=== PATIENT | female | born 1960 | race Caucasian/White ===

== ENCOUNTER 2017-11-25 16:43 | Emergency (ER) | payer OTHER ==
[~2017-11-25] VITALS: Ht 170.2 cm; Wt 80.0 kg
[~2017-11-25 16:43] MED LIST: AMLO10TA PO; LOSA100T28 PO
[2017-11-25 16:48] VITALS: BP 146/83
== END 2017-11-25 17:44 | disposition home or self-care (01) ==
LOC: ER 16:44
DX: S90.122A Contusion of left lesser toe(s) without damage to nail, initial encounter (principal); I10 Essential (primary) hypertension; F17.200 Nicotine dependence, unspecified, uncomplicated; Z88.0 Allergy status to penicillin; Z88.8 Allergy status to other drugs, medicaments and biological substances; Z79.899 Other long term (current) drug therapy; X58.XXXA Exposure to other specified factors, initial encounter; Y93.89 Activity, other specified; Y92.89 Other specified places as the place of occurrence of the external cause; Y99.8 Other external cause status
CPT/HCPCS: 73660; 99284; L3260

== ENCOUNTER 2017-12-11 10:41 | Emergency (ER) | payer OTHER ==
[~2017-12-11] VITALS: Ht 170.2 cm; Wt 71.0 kg
[2017-12-11] MEDS ORDERED: orphenadrine citrate 60mg/2ml inj. IM ONE (11:05)
[2017-12-11] MEDS ORDERED: ketorolac trometh inj. 60 MG/2 ML VIAL IM ONE (11:05)
[2017-12-11] MEDS ORDERED: CYCL-1 PO (11:12)
[2017-12-11 11:28] VITALS: BP 134/65
== END 2017-12-11 11:29 | disposition home or self-care (01) ==
LOC: ER 10:42
DX: S39.012A Strain of muscle, fascia and tendon of lower back, initial encounter (principal); M62.830 Muscle spasm of back; I10 Essential (primary) hypertension; Z88.0 Allergy status to penicillin; Z88.8 Allergy status to other drugs, medicaments and biological substances; Z79.899 Other long term (current) drug therapy; W22.8XXA Striking against or struck by other objects, initial encounter; Y93.89 Activity, other specified; Y92.89 Other specified places as the place of occurrence of the external cause; Y99.8 Other external cause status
CPT/HCPCS: 96372; 99284; J1885; J2360

== ENCOUNTER 2018-04-19 08:35 | Inpatient (IN) | payer OTHER ==
[~2018-04-19] VITALS: Ht 170.2 cm; Wt 71.7 kg
[~2018-04-19 08:35] MED LIST changes: +CYCL-1 PO
[2018-04-19] MEDS ORDERED: aspirin 81mg tab.chew PO ONE ×2 (08:55→09:30)
[2018-04-19 09:16] LABS: BASOPHILS % (AUTO) 0.3 % (0-1); EOSINOPHILS # (AUTO) 0.1 X10'3 (0-0.9); EOSINOPHILS % (AUTO) 1.3 % (0-6); HEMATOCRIT 42.5 % (35.0-45.0); HEMOGLOBIN 14.7 g/dl (12.0-16.0); LYMPHOCYTES # (AUTO) 1.8 X10'3 (1.1-4.8); LYMPHOCYTES % (AUTO) 16.5 % (21-51); MEAN CORPUSCULAR HEMOGLOBIN 31.4 PG (27.0-31.0); MEAN CORPUSCULAR HGB CONC 34.7 % (33.0-36.5); MEAN CORPUSCULAR VOLUME 90.7 FL (78-98); MEAN PLATELET VOLUME 9.9 FL (7.4-10.4); MONOCYTES # (AUTO) 0.3 X10'3 (0-0.9); MONOCYTES % (AUTO) 2.7 % (2-12); NEUTROPHILS # (AUTO) 8.7 X10'3 (1.8-7.7); NEUTROPHILS % (AUTO) 79.2 % (42-75); PLATELET COUNT 251 X10'3 (140-440); RED BLOOD COUNT 4.69 X10'6 (4.20-5.60); RED CELL DISTRIBUTION WIDTH 13.4 % (11.5-14.5); WHITE BLOOD COUNT 10.9 X10'3 (4.5-11.0)
[2018-04-19 09:33] LABS: INR 0.9 INR; PARTIAL THROMBOPLASTIN TIME 26 SECONDS (22-32); PROTHROMBIN TIME 9.8 SECONDS (9.0-12.0)
[2018-04-19 09:38] LABS: ALANINE AMINOTRANSFERASE 33 U/L (12-78); ALBUMIN 3.7 G/DL (3.4-5.0); ALKALINE PHOSPHATASE 146 IU/L (46-116); ANION GAP 9 (8-16); ASPARTATE AMINO TRANSFERASE 16 U/L (10-37); BILIRUBIN,TOTAL 0.3 MG/DL (0.1-1.0); BLOOD UREA NITROGEN 7 MG/DL (7-18); BUN/CREATININE RATIO 8.2 (6.6-38.0); CALCIUM 9.2 MG/DL (8.5-10.1); CHLORIDE 103 MMOL/L (99-107); CREATININE 0.85 MG/DL (0.40-0.90); GLUCOSE 109 MG/DL (70-104); POTASSIUM 3.7 MMOL/L (3.5-5.1); SODIUM 139 MMOL/L (135-145); TOTAL CARBON DIOXIDE 26.9 MMOL/L (24-32); TOTAL PROTEIN 7.4 G/DL (6.4-8.2); eGFR 69 ML/MIN
[2018-04-19] MEDS: nitroGLYCERIN 0.4mg SUBLingual tab SL PRN ×2 (09:42→09:52)
[2018-04-19] MEDS ORDERED: nitroGLYCERIN 0.4mg SUBLingual tab SL PRN (11:35)
[2018-04-19] MEDS: K and/or MAG REPLACEMENT MC SCH (11:35)
[2018-04-19] MEDS ORDERED: potassium Cl 40MEQ/NS 500ml 500 ML IV PRN ×2 (11:35)
[2018-04-19] MEDS ORDERED: regadenoson 0.4mg/5ml syringe IV PRN (11:35)
[2018-04-19] MEDS ORDERED: potassium Cl 20 mEq SR tablet PO PRN ×2 (11:35)
[2018-04-19] MEDS ORDERED: morphine 4 MG/ML inj SYRINge IV PRN ×2 (11:35)
[2018-04-19] MEDS ORDERED: magnesium 1gm/100ml D5W IVPB 50 ML IV PRN (11:35)
[2018-04-19] MEDS ORDERED: magnesium Cl slow-release 64mg tablet PO PRN (11:35)
[2018-04-19] MEDS ORDERED: CAFFEINE CITRATE 60 MG/3 ML injection vial IV PRN (11:35)
[2018-04-19] MEDS ORDERED: acetaminophen 325mg tablet PO PRN ×2 (11:35)
[2018-04-19] MEDS ORDERED: magnesium 4gm in 100ml NS 100 ML IV PRN (11:35)
[2018-04-19] MEDS ORDERED: metoprolol tartrate 1mg/ml inj IV PRN (11:35)
[2018-04-19] MEDS ORDERED: mag hydrox/Alum hydrox/simeth 30ml oral suspension PO PRN (11:35)
[2018-04-19] MEDS ORDERED: HYDROcodone/acetaminophen 5mg/325mg tablet PO PRN (11:35)
[2018-04-19] MEDS ORDERED: magnesium hydroxide 30ml (MOM) UD suspension PO PRN (11:35)
[2018-04-19] MEDS ORDERED: HYDROcodone/acetaminophen 10/325mg tab PO PRN (11:35)
[2018-04-19] MEDS ORDERED: ondansetron/PF 4mg/2ml inj IV PRN (11:35)
[2018-04-19] MEDS: normal saline 1000ml 1,000 ML IV SCH ×2 (12:09→21:33)
[2018-04-19 12:42] LABS: HEMOGLOBIN A1C 5.9 % (4.5-6.2)
[2018-04-19] MEDS ORDERED: AMLO10TA PO (13:40)
[2018-04-19] MEDS ORDERED: LOSA100T28 PO (13:40)
[2018-04-19] MEDS ORDERED: FLUO40CA10 PO (13:41)
[2018-04-19] MEDS: enoxaparin 40mg/0.4ml syringe SUBCUT SCH (13:44)
[2018-04-19 15:00] VITALS: BP 138/76
[2018-04-19 18:00] VITALS: BP 128/77
[2018-04-19] MEDS ORDERED: losartan 50mg tablet PO SCH ×2 (21:00→23:26)
[2018-04-19] MEDS ORDERED: amLODIPine 5mg tablet PO SCH ×2 (21:00→23:26)
[2018-04-19 22:00] VITALS: BP 126/69
[2018-04-20] VITALS (11 sets, daily range): BP systolic 109–149; BP diastolic 67–82
[2018-04-20 05:32] LABS: BASOPHILS % (AUTO) 0.7 % (0-1); EOSINOPHILS # (AUTO) 0.1 X10'3 (0-0.9); EOSINOPHILS % (AUTO) 2.1 % (0-6); HEMATOCRIT 38.2 % (35.0-45.0); HEMOGLOBIN 13.2 g/dl (12.0-16.0); LYMPHOCYTES # (AUTO) 2.1 X10'3 (1.1-4.8); LYMPHOCYTES % (AUTO) 30.9 % (21-51); MEAN CORPUSCULAR HEMOGLOBIN 31.2 PG (27.0-31.0); MEAN CORPUSCULAR HGB CONC 34.4 % (33.0-36.5); MEAN CORPUSCULAR VOLUME 90.8 FL (78-98); MEAN PLATELET VOLUME 10.1 FL (7.4-10.4); MONOCYTES # (AUTO) 0.4 X10'3 (0-0.9); MONOCYTES % (AUTO) 6.4 % (2-12); NEUTROPHILS # (AUTO) 4.1 X10'3 (1.8-7.7); NEUTROPHILS % (AUTO) 59.9 % (42-75); PLATELET COUNT 205 X10'3 (140-440); RED BLOOD COUNT 4.21 X10'6 (4.20-5.60); RED CELL DISTRIBUTION WIDTH 13.5 % (11.5-14.5); WHITE BLOOD COUNT 6.9 X10'3 (4.5-11.0)
[2018-04-20 05:54] LABS: ALANINE AMINOTRANSFERASE 30 U/L (12-78); ALBUMIN 2.9 G/DL (3.4-5.0); ALBUMIN/GLOBULIN RATIO 0.9 (1.1-1.5); ALKALINE PHOSPHATASE 115 IU/L (46-116); ANION GAP 6 (8-16); ASPARTATE AMINO TRANSFERASE 14 U/L (10-37); BILIRUBIN,TOTAL 0.2 MG/DL (0.1-1.0); BLOOD UREA NITROGEN 9 MG/DL (7-18); BUN/CREATININE RATIO 11.8 (6.6-38.0); CALCIUM 8.3 MG/DL (8.5-10.1); CHLORIDE 107 MMOL/L (99-107); CHOL/HDL RATIO 5.8 (0.00-4.99); CHOLESTEROL 222 MG/DL (0-200); CREATININE 0.76 MG/DL (0.40-0.90); GLUCOSE 87 MG/DL (70-104); HDL CHOLESTEROL 38 MG/DL (35-60); LDL CHOLESTEROL 155 MG/DL (50-100); MAGNESIUM 2.1 MG/DL (1.5-2.4); SODIUM 142 MMOL/L (135-145); TOTAL CARBON DIOXIDE 28.7 MMOL/L (24-32); TRIGLYCERIDES 129 MG/DL (20-135); eGFR 78 ML/MIN
[2018-04-20] MEDS ORDERED: pantoprazole 40mg Tablet.DR PO SCH (07:30)
[2018-04-20] MEDS: normal saline 1000ml 1,000 ML IV SCH (07:33)
[2018-04-20] MEDS: K and/or MAG REPLACEMENT MC SCH (08:00)
[2018-04-20] MEDS: enoxaparin 40mg/0.4ml syringe SUBCUT SCH (08:00)
[2018-04-20] MEDS ORDERED: FLUoxetine 20mg capsule PO SCH (08:00)
[2018-04-20] MEDS ORDERED: losartan 50mg tablet PO SCH (08:00)
[2018-04-20] MEDS ORDERED: amLODIPine 5mg tablet PO SCH (08:00)
[2018-04-20] MEDS ORDERED: regadenoson 0.4mg/5ml syringe IV ONE (09:34)
[2018-04-20] MEDS ORDERED: CAFFEINE CITRATE 60 MG/3 ML injection vial IV ONE (09:34)
[2018-04-20] MEDS ORDERED: ATOR40TA PO (11:56)
== END 2018-04-20 12:23 | disposition home or self-care (01) | DRG 392 ==
LOC: ER 08:36 → ED HOLD 11:33 → EDBEDREQ 13:27 → PCU 3S 13:57
PROVIDERS: ADMIT Family Medicine; ATTEND Family Medicine
DX: K29.70 Gastritis, unspecified, without bleeding (principal); E78.5 Hyperlipidemia, unspecified; F32.9 Major depressive disorder, single episode, unspecified; I10 Essential (primary) hypertension; K21.9 Gastro-esophageal reflux disease without esophagitis; F17.210 Nicotine dependence, cigarettes, uncomplicated; Z79.899 Other long term (current) drug therapy; Z82.49 Family history of ischemic heart disease and other diseases of the circulatory system; Z90.49 Acquired absence of other specified parts of digestive tract; Z98.51 Tubal ligation status; Z88.0 Allergy status to penicillin; Z88.8 Allergy status to other drugs, medicaments and biological substances; Z80.8 Family history of malignant neoplasm of other organs or systems
CPT/HCPCS: 36415; 71045; 78452; 80053; 80061; 83036; 83735; 84100; 84484; 85025; 85610; 85730; 87070; 93005; 93017; 93306; 99285; A9500; J1650; J7030

== ENCOUNTER 2018-06-25 16:21 | Outpatient (CLI) | payer OTHER ==
[~2018-06-25 16:21] MED LIST changes: -CYCL-1 PO; +FLUO40CA10 PO; +LOSA100T15 PO; -LOSA100T28 PO
== END 2018-06-25 23:59 | disposition home or self-care (01) ==
LOC: RAD 16:21
PROVIDERS: ATTEND Podiatrist Primary Podiatric Medicine
DX: S92.812A Other fracture of left foot, initial encounter for closed fracture (principal); S92.811A Other fracture of right foot, initial encounter for closed fracture; I10 Essential (primary) hypertension; F17.200 Nicotine dependence, unspecified, uncomplicated; Z98.51 Tubal ligation status; X58.XXXA Exposure to other specified factors, initial encounter; Y93.89 Activity, other specified; Y92.89 Other specified places as the place of occurrence of the external cause; Y99.8 Other external cause status
CPT/HCPCS: 73650

== ENCOUNTER 2018-07-29 09:44 | Outpatient (CLI) | payer OTHER ==
[~2018-07-29 09:44] MED LIST changes: +iohexol 300 MG/1 ML 10ml vial ONE
== END 2018-07-29 23:59 | disposition home or self-care (01) ==
LOC: RAD 09:44
PROVIDERS: ATTEND Podiatrist Primary Podiatric Medicine
DX: R60.0 Localized edema (principal); M25.471 Effusion, right ankle; F17.210 Nicotine dependence, cigarettes, uncomplicated; I10 Essential (primary) hypertension; G62.9 Polyneuropathy, unspecified; Z98.51 Tubal ligation status
CPT/HCPCS: 73718; Q9967

== ENCOUNTER 2018-09-22 21:32 | Emergency (ER) | payer OTHER ==
[~2018-09-22] VITALS: Ht 170.2 cm; Wt 72.3 kg
[~2018-09-22 21:32] MED LIST changes: -LOSA100T15 PO; +LOSA100T57 PO; -iohexol 300 MG/1 ML 10ml vial ONE
[2018-09-22 22:23] LABS: BASOPHILS % (AUTO) 0.4 % (0-1); EOSINOPHILS # (AUTO) 0.3 X10'3 (0-0.9); EOSINOPHILS % (AUTO) 2.6 % (0-6); HEMATOCRIT 40.5 % (35.0-45.0); HEMOGLOBIN 13.9 g/dl (12.0-16.0); LYMPHOCYTES # (AUTO) 3.5 X10'3 (1.1-4.8); MEAN CORPUSCULAR HEMOGLOBIN 31.6 PG (27.0-31.0); MEAN CORPUSCULAR HGB CONC 34.3 % (33.0-36.5); MEAN CORPUSCULAR VOLUME 92.1 FL (78-98); MEAN PLATELET VOLUME 10.2 FL (7.4-10.4); MONOCYTES # (AUTO) 0.6 X10'3 (0-0.9); MONOCYTES % (AUTO) 5.8 % (2-12); NEUTROPHILS # (AUTO) 5.6 X10'3 (1.8-7.7); NEUTROPHILS % (AUTO) 56.2 % (42-75); PLATELET COUNT 286 X10'3 (140-440); RED BLOOD COUNT 4.39 X10'6 (4.20-5.60); RED CELL DISTRIBUTION WIDTH 13.1 % (11.5-14.5); WHITE BLOOD COUNT 9.9 X10'3 (4.5-11.0)
[2018-09-22 22:42] LABS: ALANINE AMINOTRANSFERASE 34 U/L (12-78); ALBUMIN 3.4 G/DL (3.4-5.0); ALBUMIN/GLOBULIN RATIO 1.1 (1.1-1.5); ALKALINE PHOSPHATASE 136 IU/L (46-116); ANION GAP 12 (8-16); ASPARTATE AMINO TRANSFERASE 18 U/L (10-37); BILIRUBIN,TOTAL 0.2 MG/DL (0.1-1.0); BLOOD UREA NITROGEN 8 MG/DL (7-18); BUN/CREATININE RATIO 9.6 (6.6-38.0); CALCIUM 9.1 MG/DL (8.5-10.1); CHLORIDE 104 MMOL/L (99-107); CREATININE 0.83 MG/DL (0.40-0.90); GLUCOSE 154 MG/DL (70-104); POTASSIUM 3.9 MMOL/L (3.5-5.1); SODIUM 142 MMOL/L (135-145); TOTAL CARBON DIOXIDE 26.1 MMOL/L (24-32); TOTAL PROTEIN 6.4 G/DL (6.4-8.2); eGFR 70 ML/MIN
[2018-09-22 22:48] LABS: MAGNESIUM 1.9 MG/DL (1.5-2.4)
[2018-09-22 22:50] LABS: D-DIMER 0.21 MG/L FEU (0-0.50)
[2018-09-22 23:04] VITALS: BP 124/78
== END 2018-09-22 23:06 | disposition home or self-care (01) ==
LOC: ER 21:33
DX: M54.89 Other dorsalgia (principal); F17.210 Nicotine dependence, cigarettes, uncomplicated; Z90.49 Acquired absence of other specified parts of digestive tract; Z88.0 Allergy status to penicillin; Z88.8 Allergy status to other drugs, medicaments and biological substances; Z79.899 Other long term (current) drug therapy
CPT/HCPCS: 36415; 71045; 80053; 83735; 83880; 85025; 85379; 93005; 99284

== ENCOUNTER 2019-03-25 11:50 | Outpatient (CLI) | payer OTHER | END 2019-03-25 23:59 | disposition home or self-care (01) | LOC: RAD 11:50 | PROVIDERS: ATTEND Physician Assistant | DX: M47.816 Spondylosis without myelopathy or radiculopathy, lumbar region (principal); I10 Essential (primary) hypertension; F17.200 Nicotine dependence, unspecified, uncomplicated | CPT/HCPCS: 72110 ==

== ENCOUNTER 2019-03-26 08:45 | Outpatient (CLI) | payer OTHER ==
[2019-03-26 09:24] LABS: BASOPHILS # (AUTO) 0.1 X10'3 (0-0.2); BASOPHILS % (AUTO) 0.7 % (0-1); EOSINOPHILS # (AUTO) 0.1 X10'3 (0-0.9); EOSINOPHILS % (AUTO) 1.1 % (0-6); HEMATOCRIT 43.5 % (35.0-45.0); HEMOGLOBIN 14.9 g/dl (12.0-16.0); LYMPHOCYTES # (AUTO) 2.4 X10'3 (1.1-4.8); LYMPHOCYTES % (AUTO) 26.4 % (21-51); MEAN CORPUSCULAR HEMOGLOBIN 31.6 PG (27.0-31.0); MEAN CORPUSCULAR HGB CONC 34.2 g/dL (33.0-36.5); MEAN CORPUSCULAR VOLUME 92.4 FL (78-98); MEAN PLATELET VOLUME 9.7 FL (7.4-10.4); MONOCYTES # (AUTO) 0.4 X10'3 (0-0.9); MONOCYTES % (AUTO) 4.2 % (2-12); NEUTROPHILS # (AUTO) 6.1 X10'3 (1.8-7.7); NEUTROPHILS % (AUTO) 67.6 % (42-75); PLATELET COUNT 277 X10'3 (140-440); RED BLOOD COUNT 4.71 X10'6 (4.20-5.60); RED CELL DISTRIBUTION WIDTH 13.8 % (11.5-14.5)
[2019-03-26 09:51] LABS: ALANINE AMINOTRANSFERASE 49 U/L (12-78); ALBUMIN 3.5 G/DL (3.4-5.0); ALKALINE PHOSPHATASE 135 IU/L (46-116); ANION GAP 8 (8-16); ASPARTATE AMINO TRANSFERASE 13 U/L (10-37); BILIRUBIN,TOTAL 0.4 MG/DL (0.1-1.0); BLOOD UREA NITROGEN 11 MG/DL (7-18); BUN/CREATININE RATIO 14.9 (6.6-38.0); CALCIUM 9.7 MG/DL (8.5-10.1); CHLORIDE 105 MMOL/L (99-107); CHOL/HDL RATIO 7.4 (0.00-4.99); CHOLESTEROL 287 MG/DL (0-200); CREATININE 0.74 MG/DL (0.40-0.90); GLUCOSE 91 MG/DL (70-104); HDL CHOLESTEROL 39 MG/DL (35-60); LDL CHOLESTEROL 213 MG/DL (50-100); POTASSIUM 3.8 MMOL/L (3.5-5.1); SODIUM 141 MMOL/L (135-145); TOTAL CARBON DIOXIDE 28.5 MMOL/L (24-32); TRIGLYCERIDES 174 MG/DL (20-135); eGFR 80 ML/MIN
[2019-03-27 09:29] LABS: MICROALB/CRT, RATIO 3.5 mg/g creat (0.0-30.0)
[2019-03-27 13:19] LABS: THIIODOTHRONINE, FREE, SERUM 3.1 pg/mL (2.0-4.4)
== END 2019-03-26 23:59 | disposition home or self-care (01) ==
LOC: LAB 08:45
DX: I10 Essential (primary) hypertension (principal); E78.00 Pure hypercholesterolemia, unspecified; F32.2 Major depressive disorder, single episode, severe without psychotic features; F17.210 Nicotine dependence, cigarettes, uncomplicated; M54.5 Low back pain
CPT/HCPCS: 36415; 80053; 80061; 82043; 82570; 84439; 84443; 84481; 85025

== ENCOUNTER 2019-04-20 10:46 | Emergency (ER) | payer OTHER ==
[~2019-04-20] VITALS: Ht 170.2 cm; Wt 72.7 kg
[2019-04-20] MEDS ORDERED: CYCL5TAB14 PO (11:34)
== END 2019-04-20 11:58 | disposition home or self-care (01) ==
LOC: ER 10:46
DX: M54.5 Low back pain (principal); I10 Essential (primary) hypertension; F41.9 Anxiety disorder, unspecified; Z90.49 Acquired absence of other specified parts of digestive tract; Z88.0 Allergy status to penicillin; Z88.8 Allergy status to other drugs, medicaments and biological substances; Z79.899 Other long term (current) drug therapy
CPT/HCPCS: 99283